=== PATIENT | male | born 2005 | race Caucasian/White ===

== ENCOUNTER 2024-10-01 17:16 | Emergency (ER) | payer SELFPAY ==
[2024-10-01 17:25] VITALS: BP 119/92; PULSE 123; RESP 20; TEMP 36.8; O2SAT 98
--- OUTSIDE RECORDS SUMMARY | 2024-10-01 17:28 | XMS_ITS | Patient Health Record ---
Author Organization [facility] Address [address] [place] [address] Care Team Providers Care Cigar Bander Hand Name Role Phone Unknown, PCP Primary Care Provider Bell Solis [phone] Allergies Allergen (clinical drug ingredient) Drug/Non Drug Allergy documented on EMR Reaction Allergy Type Onset Date Status amoxicillin Amoxicillin Unknown Drug Allergy Act elena Results Component Value Reference Range Notes Rapid Strep Screen (IH) Reviewed date:07/22/2024 11:29:11 AM Interpretation:Negative Performing Lab: Notes/Report: Negative Negative neg Reason For Referral No Information Social History Tobacco Use: Social History Observation Description Date Details (start date - stop date) Never Smoker NA - NA Tobacco Control (Standard) Question Answer Notes Tobacco use: Nonsmoker Section Notes: Immunizations up to date. Immunizations up to date. Immunizations up to date. Vital Signs Temperature 98.8 degrees Fahrenheit 07/22/2024 Respiratory Rate 16 /min 07/22/2024 Encounters Encounter Location Date Provider Diagnosis [id number] [address] 07/22/2024 [facility] Viral pharyngitis J02.9 and Ear congestion, bilateral H93.8X3 Assessments Encounter Date Diagnosis (ICD Code) Assessment Notes Treatment Notes Treatment Clinical Notes Section Notes 07/22/2024 Viral pharyngitis (ICD-10 - J02.9) warm salt water gargles Cepacol lozenges FU if no improvement in 2-3 days sooner if any worsening 07/22/2024 Ear congestion, bilateral (ICD-10 - H93.8X3) Plan Of Treatment No Information Insurance Providers Payer Name Payer Address Payer Phone Subscriber Number Group Number Insured Name Patient Relationship to Insured Coverage Start Date Coverage End Date [facility] MEDICAID [address] [place] [address] [id number] [facility] Alonso Nails Self - patient is the insured Medical (General) History Surgical History Surgery Date(Month/Year) tonsillectomy
[2024-10-01 17:30] VITALS: BP 143/78; PULSE 129; RESP 18; O2SAT 100
--- NOTE | 2024-10-01 17:34 | PC.NURSE ---
CCollor removed by provider on her assessment.
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
--- NOTE | 2024-10-01 17:46 | PC.NURSE ---
Officer Maryanne with [employer] bedside speaking with the pt.
--- NOTE | 2024-10-01 17:52 | PC.NURSE ---
Per pts request I called his mom, Lyndsey [phone]. I updated her on his visit. He asked me to pass along that he does not want any visitors besides his mom. He requested I ask his mom that the pts father or family not be contacted at this time.
[2024-10-01 18:30] VITALS: BP 142/82; PULSE 74; RESP 13; TEMP 36.6; O2SAT 98
== END 2024-10-01 18:32 | disposition home or self-care (01) ==
PROVIDERS: Emergency Provider Emergency Medicine
DX: M25.562 Pain in left knee (principal); V49.40XA Driver injured in collision with unspecified motor vehicles in traffic accident, initial encounter; Y92.410 Unspecified street and highway as the place of occurrence of the external cause
CPT/HCPCS: 73562; 99283